=== PATIENT | female | born 1925 | race Caucasian/White ===

== ENCOUNTER 2016-04-30 13:54 | Emergency (ER) | payer MEDICARE, BC ==
[2015-05-24 15:08] VITALS: BMI 28.3
[~2016-04-30 13:54] MED LIST: BAYER CHEWABLE81 MG PO; CALAN SR180 MG PO; CULTURELLE1 CAP PO; ELIQUIS2.5 MG PO; GABAPENTIN100 MG PO; LEXAPRO10 MG PO; OXYCONTIN15 MG PO; PRESERVISION AR1 CAP PO; RESTORIL22.5 MG PO; ROXICODONE15 MG PO; SYNTHROID50 MCG PO; VENTOLIN HFA18 GM INH
[2016-04-30 15:08] LABS: APPEARANCE HAZY (CLEAR); BILIRUBIN NEGATIVE (NEGATIVE); COLOR YELLOW (YELLOW); GLUCOSE NEGATIVE (NEGATIVE); KETONE NEGATIVE (NEGATIVE); LEUKOCYTE ESTERASE TRACE (NEGATIVE); NITRITE NEGATIVE (NEGATIVE); PROTEIN NEGATIVE (NEGATIVE); SPECIFIC GRAVITY 1.015 (1.005-1.020); UROBILINOGEN NORMAL (NORMAL)
[2016-04-30 15:10] LABS: BACTERIA MODERATE /hpf (NONE SEEN); EPITHELIAL CELLS 0-5 /hpf (0-5); RED CELLS - URINE OCC /hpf (0-5); UDS - AMPHET NEGATIVE QUAL (NEGATIVE); UDS - BARB NEGATIVE QUAL (NEGATIVE); UDS - BENZO POSITIVE QUAL (NEGATIVE); UDS - COCAINE NEGATIVE QUAL (NEGATIVE); UDS - METH NEGATIVE QUAL (NEGATIVE); UDS - OPIATE POSITIVE QUAL (NEGATIVE); UDS - PCP NEGATIVE QUAL (NEGATIVE); UDS - THC NEGATIVE QUAL (NEGATIVE); WHITE CELLS - URINE 0-5 /hpf (0-5)
[2016-04-30 15:12] LABS: BASOPHILS 0.5 % (0.0-2.0); EOSINOPHILS 1.5 % (0-7); HEMATOCRIT 41.3 % (36.0-48.0); HEMOGLOBIN 13.2 g/dL (12-16); IMMATURE GRANULOCYTES 0.5 % (0-5); MCH 29.9 pg (26.0-34.0); MCV 93.4 fL (80.0-100.0); MEAN PLATELET VOLUME 10.3 fL (7.4-10.4); NEUTROPHILS 78.5 % (40-80); RBC 4.42 10x6/uL (4.00-5.40); RDW 13.9 % (11.5-14.5)
[2016-04-30 15:14] LABS: PLATELET COUNT 199 10x3/uL (130-400)
[2016-04-30 15:49] LABS: ALBUMIN 3.8 g/dL (3.4-5.0); ANION GAP 14.3 mmol/L (8-16); BILIRUBIN - TOTAL 0.54 mg/dL (0.2-1.3); CALCIUM 8.6 mg/dL (8.5-10.1); CARBON DIOXIDE 28.1 mmol/L (21.0-32.0); POTASSIUM - SERUM 3.4 mmol/L (3.5-5.1); PROTEIN - SERUM 7.4 g/dL (6.4-8.2)
== END 2016-04-30 18:43 | disposition home or self-care (01) ==
LOC: D.ER 13:54
PROVIDERS: Physician Assistant
DX: M54.5 Low back pain (principal); M54.6 Pain in thoracic spine; R58 Hemorrhage, not elsewhere classified; M54.2 Cervicalgia; I10 Essential (primary) hypertension; E03.9 Hypothyroidism, unspecified; F03.90 Unspecified dementia, unspecified severity, without behavioral disturbance, psychotic disturbance, mood disturbance, and anxiety

== ENCOUNTER 2016-07-30 11:35 | Emergency (ER) | payer MEDICARE, BC ==
[2015-05-24 15:08] VITALS: BMI 28.3
== END 2016-07-30 15:00 | disposition home or self-care (01) ==
LOC: D.ER 11:35
DX: Z03.89 Encounter for observation for other suspected diseases and conditions ruled out (principal); I10 Essential (primary) hypertension; W19.XXXA Unspecified fall, initial encounter

== ENCOUNTER 2016-08-13 08:27 | Inpatient (IN) | payer MEDICARE, BC ==
[~2016-08-13] VITALS: Ht 157.5 cm; Wt 72.7 kg
[2016-08-13 13:04] LABS: BASOPHILS 0.3 % (0-2); HEMATOCRIT 37.9 % (36.0-48.0); HEMOGLOBIN 12.1 g/dL (12-16); IMMATURE GRANULOCYTES 0.3 % (0-5); LYMPHOCYTES 22.4 % (15-50); MCH 29.9 pg (26.0-34.0); MCHC 31.9 g/dL (31.0-37.0); MCV 93.6 fL (80.0-100.0); MEAN PLATELET VOLUME 10.5 fL (7.4-10.4); MONOCYTES 8.9 % (2-11); NEUTROPHILS 65.1 % (40-80); PLATELET COUNT 207 10x3/uL (130-400); RBC 4.05 10x6/uL (4.00-5.40); RDW 13.8 % (11.5-14.5); WBC 6.4 10x3/uL (4.8-10.8)
[2016-08-13 13:19] LABS: ALBUMIN 3.2 g/dL (3.4-5.0); ALKALINE PHOSPHATASE 84 U/L (46-116); ALT (SGPT) 16 U/L (10-68); BILIRUBIN - TOTAL 1.09 mg/dL (0.2-1.3); CALC OSMOLALITY 287 mosm/kg (275-300); CALCIUM 8.8 mg/dL (8.5-10.1); CARBON DIOXIDE 29.8 mmol/L (21.0-32.0); CHLORIDE - SERUM 108 mmol/L (98-107); GLUCOSE 113 mg/dL (74-106); PROTEIN - SERUM 6.6 g/dL (6.4-8.2); SODIUM 144 mmol/L (136-145); UREA NITROGEN 12 mg/dL (7-18); eGFR NON AFRICAN AMERICAN 55 mL/min (90-120)
[2016-08-13 13:24] LABS: CREATINE KINASE 213 UL (21-215); MAGNESIUM - SERUM 1.9 mg/dL (1.8-2.4); TROPONIN-I < 0.017 ng/mL (0.000-0.060)
[2016-08-13 14:13] LABS: APPEARANCE CLEAR (CLEAR); COLOR DK YELLOW (YELLOW); GLUCOSE NEGATIVE (NEGATIVE); LEUKOCYTE ESTERASE NEGATIVE (NEGATIVE); NITRITE NEGATIVE (NEGATIVE); PROTEIN NEGATIVE (NEGATIVE); SPECIFIC GRAVITY 1.025 (1.005-1.020)
[2016-08-13 14:14] LABS: BILIRUBIN NEGATIVE (NEGATIVE); KETONE NEGATIVE (NEGATIVE); UROBILINOGEN NORMAL (NORMAL)
[2016-08-13 16:37] VITALS: BP 114/64; Ht 157.5 cm; Wt 72.7 kg
[2016-08-13 18:22] VITALS: BP 126/64
--- NOTE | 2016-08-13 19:58 | NUR ---
REECIVED IN BEDRROM. RESTING IN BED EYES CLOSED. RESPONDS TO TOUCH. VERY CONFUSED. BOX ALARM PLACED FOR SAFETY. CALL LIGHT IN REACH.
[2016-08-13 20:00] VITALS: BP 132/66
--- NOTE | 2016-08-14 02:56 | NUR ---
RESTING IN BED EYES CLOSED. NO SIGNS OF DISTRESS. CALL LIGHT IN REACH
[2016-08-14 04:00] VITALS: BP 130/69
[2016-08-14 06:41] LABS: BASOPHILS 0.4 % (0-2); EOSINOPHILS 4.1 % (0-7); HEMOGLOBIN 12.1 g/dL (12-16); IMMATURE GRANULOCYTES 0.2 % (0-5); LYMPHOCYTES 26.6 % (15-50); MCH 29.8 pg (26.0-34.0); MCHC 31.8 g/dL (31.0-37.0); MCV 93.6 fL (80.0-100.0); MONOCYTES 9.8 % (2-11); NEUTROPHILS 58.9 % (40-80); PLATELET COUNT 213 10x3/uL (130-400); RBC 4.06 10x6/uL (4.00-5.40)
[2016-08-14 07:03] LABS: ANION GAP 11.1 mmol/L (8-16); CALCIUM 8.6 mg/dL (8.5-10.1); CARBON DIOXIDE 28.6 mmol/L (21.0-32.0); CREATININE - SERUM 0.9 mg/dL (0.6-1.3)
[2016-08-14 07:35] LABS: WBC 4.6 10x3/uL (4.8-10.8)
[2016-08-14 07:37] LABS: POTASSIUM - SERUM 2.7 mmol/L (3.5-5.1)
[2016-08-14 08:31] VITALS: BP 118/61
--- NOTE | 2016-08-14 09:04 | NUR ---
PT ALERT TO SELF ONLY RESP EVEN AND NONLABORED IV TO LEFT FOREARM PATENT AT THIS TIME IV PT DENIES NEEDS AT THIS TIME SRX2 BED AT LOWEST SETTING CALL LIGHT WITHIN REACH WILL CONTINUE TO MONITOR
--- NOTE | 2016-08-14 11:04 | NUR ---
Patient Name: SOURAV THOMAS Admission Status: ER Accout number: [id number] Admission Date: 08-13-2016 : 1925 Admission Diagnosis: Attending: JENNIFER Current LOS: 1 Anticipated DC Date: 08-17-2016 Planned Disposition: [facility] Primary Insurance: MEDICARE A & B Discharge Planning Comments: CM MET WITH PATIENT AND THEN CALLED DAUGHTER (SUSSY) FOR DISCHARGE NEEDS AND PLANS. DAUGHTER STATED HER MOTHER LIVES WITH HER AND HER SPOUSE AND FALLS ALL DURING THE DAY. DAUGHTER HAS BEEN FALLING SO MUCH THEY HAVE BEEN CALLING EMT SERVICES TO HELP HER UP-THEY CANNOT PHYSICALLY PICK HER UP ANY LONGER. PATIENT HAS [facility] THAT HELP WITH HER BATH AND DAILY NEEDS. PATIENT HAS A WALKER, W/C, CANE, TABLE FOR BEDSIDE,WHEELCHAIR, SHOWER CHAIR, AND BS COMMODE AT HOME. PATIENT USES A WALKER AT TIMES BUT NOT ALWAYS - THATS WHEN SHE FALLS PER DAUGHTER. PATIENTS PCP IS DR. SANTILLAN AND PHARMACY IS [facility] AT [facility]. PATIENTS FAMILY WOULD LIKE A SNF FOR PATIENT IF POSSIBLE. CM WILL CONTINUE TO FOLLOW PATIENT WITH D/C NEEDS AND PLANS. PCP DR. SANTILLAN [facility]- [phone] SUSSY (DAUGHTER) [phone] Corporate Receptionist: Anneliese Banks How many steps to enter\exit or inside your home? 0 0 * PCP TYRELL 0 * Pharmacy [facility] 0 * Preadmission Environment Home with Family 0 * ADLs Independent 0 * Equipment Bedside Commode Cane Shower Chair Walker Wheelchair 0 * Other Equipment TABLE FOR BEDSIDE 0 * List name and contact numbers for known caregivers / representatives who currently or will assist patient after discharge: SUSSY (DAUGHTER) [phone] 0 * Community resources currently utilized Other 0 * Please name any agencies selected above. [facility] 0 * Additional services required to return to the preadmission environment? Yes 0 * Can the patient safely return to the preadmission environment? Yes 0 * Has this patient been hospitalized within the prior 30 days at any hospital? No 0 Grand Total: 0
--- NOTE | 2016-08-14 12:07 | HP ---
PATIENT: SOURAV THOMAS MEDICAL RECORD: [id number] ACCOUNT: [id number] LOCATION:D.[id number] : [birth year] ADMISSION DATE: 08/14/16 HISTORY AND PHYSICAL EXAMINATION HISTORY OF PRESENT ILLNESS: This elderly 89-year-old white female presented to the Emergency Room upon day of admission with complaint of a fall at home. The patient has a longstanding history of falls. She was evaluated in the Emergency Room and had evidence of head trauma, laceration was repaired by the ER physician and the patient has a CT of the head that was obtained showing evidence of a small subdural hematoma. The patient will need to be observed for the next 23-hours due to the subdural hematoma and to confirm no increasing size to this patient. PAST MEDICAL HISTORY: She is confused at the present time and old history is utilized from the previous chart. She is on chronic pain medication for osteoarthritis. She has history of arrhythmia, hypertension, neuropathy, insomnia, depression, hypothyroidism and multiple falls. PAST SURGICAL HISTORY: Includes appendectomy, hysterectomy, right partial knee surgery. She had pelvic repair. She has had 3 back surgeries. She has had a ganglion cyst. ALLERGIES: The patient allergic only to ____. MEDICATIONS: Include oxycodone, Eliquis, Calan, Neurontin, Restoril, Lexapro, Synthroid, lactobacillus. SOCIAL HISTORY: The patient does not drink alcohol. Unknown smoking history. REVIEW OF SYSTEMS: The patient is complaining of increasing thirst, has a headache. No chest pain. No vision changes and no numbness to the extremities: No nausea or vomiting at the present time. REVIEW OF SYSTEMS: As above. PHYSICAL EXAMINATION: VITAL SIGNS: As below. GENERAL: She is a thin, frail 89-year-old white female that is resting comfortably in bed with evidence of a laceration to the back of her head that has been repaired. Her pupils do react to light. Extraocular movements are intact. Oral cavity and oropharynx shows tacky mucous membranes. NECK: No cervical or pharyngeal adenopathy. No nuchal rigidity. LUNGS: Clear to auscultation bilaterally. HEART: Regular rate and rhythm, I/ systolic ejection murmur. ABDOMEN: Soft, nontender, positive bowel sounds. No hepatosplenomegaly, no masses. EXTREMITIES: Arthritic changes noted. NEUROLOGIC: She is able to move all 4 extremities. ASSESSMENT: 1. Subdural hematoma. 2. Hypertension. 3. History of falls. 4. Recent trauma. HISTORY AND PHYSICAL [id number] SOURAV THOMAS 5. Anticoagulation. PLAN: The patient will be monitored in the hospital 23-hour observation. We will check laboratory appropriately and neurosurgery consultation will be obtained for monitoring. TRANSINT:[id number] Voice Confirmation ID: [id number] DOCUMENT ID: [id number] EL SMITH MD at 1207 CC: [id number] DICTATION DATE: 08/13/16 1637 DISTANCE EDUCATION DIRECTOR: 08/13/16 1721 ADM IN [place] [id number] [place] [id number]
[2016-08-14] MEDS ORDERED: Bactroban ointment TOPICAL (12:11)
[2016-08-14] MEDS ORDERED: BAYER CHEWABLE81 MG PO (12:13)
[2016-08-14 12:32] VITALS: BP 164/66
--- NOTE | 2016-08-14 14:46 | NUR ---
CM REASSESSMENT NOTE: PATIENT IS DISCHARGING TO IP REHAB TODAY. FAMILY (SUSSY) HAS BEEN NOTIFIED.
--- NOTE | 2016-08-14 16:26 | NUR ---
OT NOTE: PT COMPLETED BED MOB WITH MOD A AND POSITIONING FOR DECREASED RISK OF SKIN BREAKDOWN. PT COMPLETED SIMPLE HYGIENE TASK WITH MIN A. PT COMPLETED BUE AAROM EXS IN ALL PLANES FOR INCREASED I WITH ADLS. THANK YOU, EDISON CAMPBELL/Meredith
--- NOTE | 2016-08-14 16:45 | NUR ---
PT TAKEN VIA WHEELCHAIR TO INHOUSE REBILATATION AT THIS TIME
[2016-08-14] MEDS ORDERED: KLONOPIN1 MG PO (18:05)
[2016-08-14] MEDS ORDERED: RESTORIL15 MG PO (18:07)
[2016-08-14] MEDS ORDERED: ROXICODONE30 MG PO (18:08)
[2016-08-15] MEDS ORDERED: KLONOPIN1 MG PO (12:58)
[2016-08-15] MEDS ORDERED: HALDOL5 MG/ML (12:59)
[2016-08-15] MEDS ORDERED: ATIVAN2 MG/ML IM (13:00)
== END 2016-08-14 16:45 | DRG 87 ==
LOC: D.ER 08:27 → D.MS 13:04 → OBSVTIME 13:04 → D.MS 13:04
PROVIDERS: Emergency Medicine; ADMIT Family Medicine
PROC: 0HQ0XZZ Repair Scalp Skin, External Approach (ICD-10-PCS; principal; 2016-08-13)
DX: S06.5X0A Traumatic subdural hemorrhage without loss of consciousness, initial encounter (principal); S01.01XA Laceration without foreign body of scalp, initial encounter; W18.39XA Other fall on same level, initial encounter; S00.93XA Contusion of unspecified part of head, initial encounter; I10 Essential (primary) hypertension; E03.9 Hypothyroidism, unspecified; F03.90 Unspecified dementia, unspecified severity, without behavioral disturbance, psychotic disturbance, mood disturbance, and anxiety; E87.6 Hypokalemia; E88.09 Other disorders of plasma-protein metabolism, not elsewhere classified

== ENCOUNTER 2016-08-13 13:01 | Outpatient (CLI) | payer MEDICARE, BC ==
[2016-08-14] MEDS ORDERED: Bactroban ointment TOPICAL (12:11)
[2016-08-14] MEDS ORDERED: BAYER CHEWABLE81 MG PO (12:13)
[2016-08-14] MEDS ORDERED: KLONOPIN1 MG PO (18:05)
[2016-08-14] MEDS ORDERED: RESTORIL15 MG PO (18:07)
[2016-08-14] MEDS ORDERED: ROXICODONE30 MG PO (18:08)
[2016-08-15] MEDS ORDERED: KLONOPIN1 MG PO (12:58)
[2016-08-15] MEDS ORDERED: HALDOL5 MG/ML (12:59)
[2016-08-15] MEDS ORDERED: ATIVAN2 MG/ML IM (13:00)
[2016-08-21 16:20] VITALS: BMI 29.3
== END 2016-08-14 16:45 | disposition short-term general hospital (02) ==
LOC: D.OPS 13:01
DX: S06.5X0A Traumatic subdural hemorrhage without loss of consciousness, initial encounter (principal); S01.01XA Laceration without foreign body of scalp, initial encounter; W18.39XA Other fall on same level, initial encounter; S00.93XA Contusion of unspecified part of head, initial encounter; I10 Essential (primary) hypertension; E03.9 Hypothyroidism, unspecified; F03.90 Unspecified dementia, unspecified severity, without behavioral disturbance, psychotic disturbance, mood disturbance, and anxiety; E87.6 Hypokalemia; E88.09 Other disorders of plasma-protein metabolism, not elsewhere classified; R41.0 Disorientation, unspecified; R94.31 Abnormal electrocardiogram [ECG] [EKG]

== ENCOUNTER 2016-08-14 16:38 | Inpatient (IN) | payer MEDICARE, BC ==
[~2016-08-14] VITALS: Ht 157.5 cm; Wt 72.7 kg
[~2016-08-14 16:38] MED LIST changes: +Bactroban ointment TOPICAL
--- NOTE | 2016-08-14 17:10 | NUR ---
RECIEVED/WC TO ROOM 1108B.CONFUSED AND DISORIENTED.HX:OF FALLS X2.INCISION TO SCALP WITH MARLENE IN PLACE.OOZING SCANT AMT OF LIGHT RED LIQUID.MATTED IN HAIR.INCONT OF STOOL;TAKEN TO BATHROOM AND ASSISTED MOD ASSIST TO COMMODE,GOOD FORMED BROWN BM NOTED.CLEANED AND PLACED BACK IN WC WITH ALARM,STATES SHE WANTS HER DAUGHTER AND CONSISTENTLY GETING UP,TALKING ABOUT HER TAMMIE;RE-ORIENTED TO SURROUNDIGS BUT STATES SHE DOES NOT CARE.STATES SHE WANTS SUSSY AND HER CAT.
[2016-08-14] MEDS ORDERED: KLONOPIN1 MG PO (18:05)
[2016-08-14] MEDS ORDERED: RESTORIL15 MG PO (18:07)
[2016-08-14] MEDS ORDERED: ROXICODONE30 MG PO (18:08)
--- NOTE | 2016-08-14 18:39 | NUR ---
NOTIFIED FOR MED ORDERS GIVEN TO US PER HER DAUGHTER WHOM IS POA,OK TO RESTART MEDS.PT IS COMBATIVE,CLAWING,PINCHING,SCRATCHING,PULLING,HITTING.LOOKING FOR LONG KNIFE TO KILL SOMEONE AND WANTING TO CALL POLICE.
--- NOTE | 2016-08-14 21:25 | NUR ---
SPOKE WITH DR SHERIFF REGARDING PT MENTAL STATUS. PT HAS BEEN AGGRESSIVE AND DISRUPTIVE. PT HAS ATTEMPTED TO SCRATCH, KICK, PUNCH, AND BITE STAFF. PT HAS CALLED STAFF NAMES. PT HAS INSISTED THAT SHE IS IN HER HOME AND NOT IN THE HOSPITAL AND THAT STAFF HAS REMODELED HER HOME TO MAKE IT LOOK LIKE A HOSPITAL. PT HAS THREATENED TO KILL STAFF. PT REFUSES TO STAY IN BED. PT IS CURRENTLY SITTING AT NURSES STATION IN WHEELCHAIR WITH STAFF CONSTANTLY BY HER SIDE. DR SHERIFF ORDERED 3MG OF HALDOL AND 1MG ATIVAN Q2PRN.
--- NOTE | 2016-08-14 22:09 | NUR ---
PT ADMINSTERED PRN HALDON AND ATIVAN IM. WCTM.
--- NOTE | 2016-08-15 00:05 | NUR ---
PT HAS CONTINUED TO BE AGGRESSIVE AND HAS SUCCEEDED IN HITTING, SCRATCHING, AND PUNCHING STAFF. PT GIVEN PRN HALDOL AND ATIVAN AT THIS TIME. WCTM.
--- NOTE | 2016-08-15 01:30 | NUR ---
PT REFUSING TO STAY IN BED. PT MOVED TO RECLINING CHAIR AND BROUGHT TO NURSES STATION. PT IS LESS COMBATIVE AT THIS TIME. WCTM.
--- NOTE | 2016-08-15 03:30 | NUR ---
PT RESTING, EYES CLOSED. RR ARE EVEN AND UNLABORED. WCTM.
[2016-08-15 04:28] VITALS: BP 164/66; Ht 157.5 cm; Wt 72.7 kg
--- NOTE | 2016-08-15 07:20 | NUR ---
PT VERY UPSET AND AGGRESSIVE VERBILIZES SHE WANTS TO DROWN NURSE RALPH GARLAND RN IN [facility] AND THAT THIS PLACE IS A CONSPIRICY THERORY. PT IN [place]ANCIS[place] CHAIR AT NURSES DESK FOR SAFETY. SIOMARA VELA
--- NOTE | 2016-08-15 07:50 | NUR ---
PT GIVEN IM INJECTION ATIVAN AND HALDOL PER DR ORDER FOR AGRRESSION AND AGGITATION WILL MONITER
--- NOTE | 2016-08-15 08:00 | NUR ---
IN RECLINER CHAIR WITH EYES ON AT ALL TIMES.ATTENDED PER STAFF.
--- NOTE | 2016-08-15 08:15 | NUR ---
PT STILL VERY AGGRESSIVE TRYING TO STAND HITTING AT STAFF SCRATCHED STAFF Roque PART OF PHYSICAL THERAPY STAFF AND [place] BLOOD. PT REFUSES BREAKFAST
--- NOTE | 2016-08-15 09:45 | NUR ---
PT REFUSING ALL MEDS STILL AT NURSING STATION WILL MONITER
--- NOTE | 2016-08-15 11:56 | NUR ---
PATIENT UNABLE TO PARTICIPAIE IN THERAPY AND IS BEING DISCHARGED FROM [facility] AND ADMITTED TO [facility].
[2016-08-15] MEDS ORDERED: KLONOPIN1 MG PO (12:58)
[2016-08-15] MEDS ORDERED: HALDOL5 MG/ML (12:59)
[2016-08-15] MEDS ORDERED: ATIVAN2 MG/ML IM (13:00)
--- NOTE | 2016-08-15 13:45 | NUR ---
PT DISCHARGED TO [facility] REPORT CALLED REPORT TO LEILANI
== END 2016-08-15 14:44 | DRG 950 ==
LOC: D.REHAB 16:38
PROVIDERS: ADMIT Emergency Medicine
DX: S06.5X0D Traumatic subdural hemorrhage without loss of consciousness, subsequent encounter (principal); W19.XXXD Unspecified fall, subsequent encounter; I10 Essential (primary) hypertension; E03.9 Hypothyroidism, unspecified; J45.909 Unspecified asthma, uncomplicated; F41.8 Other specified anxiety disorders; G62.9 Polyneuropathy, unspecified

== ENCOUNTER 2016-08-15 11:04 | Inpatient (IN) | payer MEDICARE, BC ==
[~2016-08-15] VITALS: Ht 157.5 cm; Wt 72.7 kg
[~2016-08-15 11:04] MED LIST changes: +KLONOPIN1 MG PO; +RESTORIL15 MG PO; +ROXICODONE30 MG PO
[2016-08-15] MEDS ORDERED: KLONOPIN1 MG PO (12:58)
[2016-08-15] MEDS ORDERED: HALDOL5 MG/ML (12:59)
[2016-08-15] MEDS ORDERED: ATIVAN2 MG/ML IM (13:00)
--- NOTE | 2016-08-15 13:56 | NUR ---
PT ADMITTED TO RETIREMENT FROM REHAB FOR INCREASE COMBATIVENESS. PT WAS HITTING, KICKING, SCRATCHING, AND SPITTING AT STAFF. PT HAS BEEN REFUSING HER MEDICATIONS AND REFUSING TO EAT. PT DID EAT 50% OF HER LUNCH PRIOR TO COMING TO UNIT. SPOKE WITH HER DAUGHTER SUSSY WHO IS HER POA AND GOT VERBAL CONSENT FOR TREATMENT AND TO BE ADMITTED TO UNIT. REVIEWED CODE STATUS AND PT IS A DNR. PT HAS FALLEN MULTIPLE TIMES AT HOME AND HAS MULTIPLE BRUISES THROUGH OUT HER BODY AND FACE. FALL PRECAUTIONS INITIATED. WILL CONTINUE TO MONITOR AND CONTINUE WITH CARE PLAN. PT HAS MARLENE ON HER HEAD BUT SHE REFUSED TO ALLOW STAFF IN REHAB TO ASSESS THEM.
[2016-08-15 14:26] VITALS: BP 115/64; BMI 29.3
[2016-08-15 14:32] VITALS: BMI 29.2
[2016-08-15 15:00] LABS: BASOPHILS 0.6 % (0-2); EOSINOPHILS 4.7 % (0-7); HEMATOCRIT 38.3 % (36.0-48.0); HEMOGLOBIN 12.7 g/dL (12-16); IMMATURE GRANULOCYTES 0.6 % (0-5); LYMPHOCYTES 28.2 % (15-50); MCH 30.6 pg (26.0-34.0); MCHC 33.2 g/dL (31.0-37.0); MCV 92.3 fL (80.0-100.0); MEAN PLATELET VOLUME 10.6 fL (7.4-10.4); MONOCYTES 10.1 % (2-11); NEUTROPHILS 55.8 % (40-80); PLATELET COUNT 214 10x3/uL (130-400); RBC 4.15 10x6/uL (4.00-5.40); WBC 5.2 10x3/uL (4.8-10.8)
[2016-08-15 15:37] LABS: HEMOGLOBIN A1C 5.3 % (4.8-6.0)
[2016-08-15 15:41] LABS: ALBUMIN 3.8 g/dL (3.4-5.0); BILIRUBIN - TOTAL 1.26 mg/dL (0.2-1.3); CALCIUM 9.1 mg/dL (8.5-10.1); CARBON DIOXIDE 26.1 mmol/L (21.0-32.0); CHOL - HDL RATIO 3.9 ratio (2.3-4.1); CREATININE - SERUM 0.9 mg/dL (0.6-1.3); LDL-HDL RATIO 2.5 ratio (1.5-3.5); POTASSIUM - SERUM 3.1 mmol/L (3.5-5.1); PROTEIN - SERUM 7.1 g/dL (6.4-8.2)
--- NOTE | 2016-08-15 23:10 | NUR ---
RECEIVED IN HALLWAY. CAMBATIVE WITH STAFF. SPIT AT STAFF. ATTEMPTED TO HIT AND KICK STAFF. VERBALLY ABUSIVE. REFUSED VITALS AND ASSESSMENTS. REDIRECT AND REORIENT NEEDED. CONTINUES TO SIT IN RECLINER OUTSIDE OF NURSES STATION. CONTINUE PLAN OF CARE
[2016-08-16 08:15] VITALS: BP 156/111
[2016-08-16 11:30] VITALS: BP 148/69
--- NOTE | 2016-08-16 13:48 | NUR ---
Received this am asleep, arouses to name. Oriented to self only. Slept through breakfast, awake at lunch and was cooperative with meal with no behaviors noted at this time. Chair alarm in place. Safety maintained. Continue plan of care.
[2016-08-16 20:15] VITALS: BP 137/68
--- NOTE | 2016-08-17 00:38 | NUR ---
B) Recieved patient in the hallway, alert and oriented to self and being in a hospital, agitated, aggressive to staff: hitting and spitting, said we were stealing her property, called this nurse a snake, I) offered perscribed PO medications, PRN Ativan 0.5 mg IM and Haldol 2 mg IM given, monitored for falls and safety, R) Refused all PO medications, resting quietly in the hallway, P) Continue plan of care.
--- NOTE | 2016-08-17 14:58 | NUR ---
B) PATIENT IS ANGRY AND IRRITABLE, SHE HIT AT STAFF WHILE SHOWERING AND SHE SWUNG AT DR. RICE. PATIENT REFUSED AM MEDS, SHE MAKES SNIDE RUDE REMARKS TO STAFF IF THEY ASK HER QUESTIONS. PATIENT IS IN A FRANCISCO CHAIR, SHE IS NOT WALKING. PATIENT IS CONFUSED AND HAS DELUSIONAL THOUGHTS OF PEOPLE TRYING TO STEAL FROM HER. I) PROVIDE PRESCRIBED MEDS. R) PATIENT REFUSES MEDS, MONITOR FOR AGGRESSION. WILL TRY TO GET PHARMACY NAME FROM DTR. NEXT TIME SHE CALLS. P) CONT. POC.
--- NOTE | 2016-08-17 17:56 | NUR ---
PATIENT IS FIGHTING STAFF, SHE IS DELUSIONAL, SCREAMING FOR THE POLICE. PATIENT KEEPS CALLING STAFF LIARS. SHE IS NOT REDIRECTING, SHE IS FIGHTING, SHE IS CONFUSED, DOES NOT KNOW WHERE SHE IS LOCATED. ATIVAN 0.5 MG WITH HALDOL 2 MG IM GIVEN IN LEFT HIP.
--- NOTE | 2016-08-17 18:30 | NUR ---
PATIENT IS SITTING IN THE DAY ROOM AND SHE IS FIGHTING AND SCREAMING, WILL CONTINUE TO MONITOR.
[2016-08-17 19:48] VITALS: BP 152/63
--- NOTE | 2016-08-18 02:06 | NUR ---
B) Recieved patient in the day room, alert and oriented to self, agitated and restless, I) Administered perscribed medications, monitored for safety and behaviors, R) Medication compliant, aggressive with staff at times, P) Continue plan of care.
[2016-08-18 15:09] VITALS: BP 138/80
[2016-08-18 19:00] VITALS: BP 138/70
--- NOTE | 2016-08-18 19:53 | NUR ---
B) PATIENT IS AWAKE AND SHE DID NOT WANT TO GET UP, SHE FUSSED A LITTLE BIT AND THEN SHE SAT IN A RECLINER AND SHE NOT DISPLAY AGGRESSION OR AGITATION. PATIENT IS UNSTEADY, SO STAFF HAS TO ASSIST. I) PROVIDE PRESCRIBED MEDS. R) PATIENT IS COMPLIANT WITH MEDS TODAY. P) CONTINUE POC.
--- NOTE | 2016-08-18 22:11 | NUR ---
ORIENTED TO PERSON ONLY. PT LETHARGIC BUT ABLE TO BE ROUSED FOR ASSESSMENT AND MEDICATIONS. NO AGGRESSION NOTED. MEDICATIONS GIVEN ORDERED. FALL PRECAUTIONS MAINTAINED. WILL CONTINUE TO MONITOR AND CONTINUE WITH PLAN OF CARE.
--- NOTE | 2016-08-19 08:10 | NUR ---
B) PATIENT TRYING TO GET UP AND SHE IS NOT REDIRECTING OR LISTENING SHE HAS ALREADY FALLEN AND HAS MARLENE IN HER HEAD, EXPLAINED WE ARE TRYING TO KEEP HER SAFE. PATIENT NOT LISTENING AND SHE HITS AT AND KICKS AT THIS NURSE. PATIENT RECEIVED 0.5 MG ATIVAN WITH 2 MG HALDOL IM. PATIENT IS ORIENTED TO SELF ONLY. I) PROVIDE PRESCRIBED MEDS. R) PATIENT REFUSED MEDS TODAY. P) CONTINUE POC.
[2016-08-19 10:42] VITALS: BP 164/80
--- NOTE | 2016-08-19 20:00 | NUR ---
RECEIVED IN DAYROOM IN RECLINER WITH EYES CLOSED. ORIENTED TO PERSON ONLY. VERY LETHARGIC, BUT TOOK ORDERED MEDS CRUSHED IN APPLESAUCE. CALM AND COOPERATIVE WITH ASSESSMENT AND CARE. VSS. ASSESSMENT COMPLETED PER FLOW SHEET. WILL CONTINUE POC AND MAINTAIN SAFETY.
[2016-08-20 07:00] VITALS: BP 144/82
[2016-08-20 19:30] VITALS: BP 149/59
--- NOTE | 2016-08-20 20:37 | NUR ---
PT IS RECEIVED IN CHAIR AT NURSE STATION. PT IS ALERT AND ORIENTED X3. PT DENIES PAIN. NO HALLUCINATIONS OR DELUSIONS ARE NOTED OR REPORTED. PT IS REDIRECTED AND REORIENTED NEEDED. PT IS COOEPRATIVE WITH STAFF AND IS COMPLIANT WITH MEDS AND CARE. WILL CONTINUE TO MONITOR AND CONTIUE WITH PLAN OF CARE.
--- NOTE | 2016-08-20 20:51 | NUR ---
RECEIVED IN DAYRROM. SITTING IN RECLINER WITH EYES CLOSED. RESPONDS TO VOICE. CONFUSED. CALM AND COOPERATIVE WITH CARE AND ASSESSMENTS. NO SIGNS OF AGGRESSION. REDIRECT AND REORIENT NEEDED. CONTINUES TO SIT QUIETLY IN RECLINER. CONTINUE PLAN OF CARE
[2016-08-21 10:13] VITALS: BP 168/72
[2016-08-21 16:20] VITALS: Ht 157.5 cm; Wt 72.7 kg
--- NOTE | 2016-08-21 16:21 | NUR ---
ORIENTED TO PERSON ONLY. PT IS VERY RESTLESS AND ATTEMPTS TO SLIDE INTO THE FLOOR. FREQUENT REDIRECTION DONE WITH NO EVIDENCE OF RETAINING. PT MAKING DELUSIONAL STATEMENTS ABOUT CATS. SHE DOES BECOME AGITATED EASILY. FALL PRECAUTIONS MAINTAINED. MEDICATIONS GIVEN ORDERED. WILL CONTINUE TO MONITOR AND CONTINUE WITH PLAN OF CARE.
[2016-08-21 19:30] VITALS: BP 108/63
--- NOTE | 2016-08-21 20:02 | NUR ---
RECEIVED IN DAYROOM. SITTING IN WHEELCHAIR WITH EYES CLOSED. RESPONDS TO VOICE. CALM AND COOPERATIVE WITH CARE AND ASSESSMENTS. NO SIGNS OF AGGRESSION. REDIRECT AND REORIENT NEEDED. ENCORAGE TO EXPRESS NEEDS. CONTINUES TO SIT QUIETLY IN CHAIR. CONTINUE PLAN OF CARE
--- NOTE | 2016-08-21 22:03 | NUR ---
RECEIVED IN DAYROOM. SITTING IN RECLINING CHAIR WITH STAFF AND PEERS. NOT SOCIALIZING. VERY CONFUSED. CALM AND COOPERATIVE WITH STAFF AND PEERS. NO SIGNS OF AGGRESSION. REDIRECT AND REORIENT NEEDED. RESTING IN BED EYES CLOSED AT THIS TIME. CONTINUE PLAN OF CARE
[2016-08-22 11:12] VITALS: BP 123/50
--- NOTE | 2016-08-22 16:01 | NUR ---
Alert and oriented to self only, calm and cooperative with assessment this am. Redirect and reorient as need. Monitor for any behavior changes. Monitor safety. Delusional thinks she is looking forn her cat, keeps trying to get out of chair unassisted. No aggression and is redirectable. Safety maintained. Continue plan of care.
--- NOTE | 2016-08-22 20:10 | NUR ---
RECEIVED IN DAYROOM. SITTING IN A WHEELCHAIR WITH EYES CLOSED. RESPONDS TO VOICE. VERY CONFUSED. CALM AND COOPERATIVE WITH CARE AND ASSESSMENTS. NO SIGNS OF AGGRESSION. REDIRECT AND REORIENT NEEDED. CONTINUES TO SIT QUIETLY IN WHEELCHAIR. CONTINUE PLAN OF CARE
[2016-08-23 11:34] VITALS: BP 155/81
--- NOTE | 2016-08-23 12:20 | NUR ---
ORIENTED TO PERSON ONLY. PT SPEECH IS GARBLED AND SLURRED. DIFFICULT TO UNDERSTAND. RANDOM DELUSIONS MADE. REORIENTED AND REDIRECTED NEEDED. NO EVIDENCE OF RETAINING EDUCATION OR REDIRECTION. MEDICATIONS GIVEN ORDERED. FALL PRECAUTIONS MAINTAINED. WILL CONTINUE TO MONITOR AND CONTINUE WITH PLAN OF CARE. NO AGGRESSION NOTED.
--- NOTE | 2016-08-23 14:01 | NUR ---
5 MARLENE REMOVED. LACERATION IS CLOSED.
--- NOTE | 2016-08-23 20:40 | NUR ---
RECEIVED IN DAYROOM SITTING RECLINER WATCHING TV. WQAKE AND ALERT TO NAME AND SITUATION. SHE IS IN PLEASANT MOOD. NO AGGRESSION NOTED. ADMINISTER PRESCRIBED MEDS. VSS. MEDICATION COMPLIANT. CALM AND COOPERATIVE WITH CARE AND ASSESSMENT. CONTINUE WITH PLAN OF CARE AND MONITOR FOR SAFETY AND CHANGES.
[2016-08-24 08:00] VITALS: BP 115/54
--- NOTE | 2016-08-24 13:47 | NUR ---
ORIENTED TO PERSON AND PLACE. REDIRECTION DONE BUT PT SHOWS NO SIGNS OF RETAINING. NO AGGRESSION NOTED. DENIES. COOPERATIVE WITH CARE. SPEECH IS CLEAR TODAY. MEDICATIONS GIVEN ORDERED. FALL PRECAUTIONS MAINTAINED. WILL CONTINUE TO MONITOR AND CONTINUE WITH PLAN OF CARE.
--- NOTE | 2016-08-24 14:12 | NUR ---
Nutrition Follow Up: Pt is eating 36% meal avg on an AHA diet. Wt stable. +BM 08/23/16. No new labs to review. Meds noted including Megace. Rec changing diet to regular to encourage po intake. RD following.
--- NOTE | 2016-08-24 20:38 | NUR ---
RECEIVED PT SITTING IN RECLINER, PT ASKING WHICH HOSPITAL SHE WAS IN, I INFORMED PT SHE WAS IN [facility], PT STATES "OK', I WAS TALKING TO PT ABOUT HER FIRST AND LAST NAME, PT PROCEEDED IN TELLING ME THAT SHE "LOATHED" HER LAST NAME AND HATED HER FIRST NAME, PT STATES "I WOULD OF LIKED THE NAME KASSIDY", ADM 2100 MEDS CRUSHED IN APPLESAUCE, PT COOPERATIVE IN TAKING MEDS, WILL CONTINUE POC
[2016-08-24 21:53] VITALS: BP 123/54
[2016-08-25 07:59] VITALS: BP 130/57
--- NOTE | 2016-08-25 09:00 | NUR ---
ORIENTED TO PERSON AND PLACE. CALM AND COOPERATIVE WITH ASSESSMENT. VSS. NO AGGRESSION NOTED. SPEECHES CLEAR, BUT SOFTLY. ADMINISTER PRESCRIBED MEDICATIONS. MEDICATION COMPLIANT. FALL PRECAUTIONS MAINTAINED. WILL CONTINUE PLAN OF CARE.
--- NOTE | 2016-08-25 18:07 | NUR ---
RECEIVED IN DINING AREA. SITTING AT TABLE WITH PEERS AT SUPPER TIME. CALM AND COOPERATIVE WITH CARE AND ASSESSMENTS. NO SIGNS OF AGGRESSION. REDIRECT AND REORIENT NEEDED. IN DAYROOM AREA SOCIALIZING WITH A PEER AT THIS TIME. CONTINUE PLAN OF CARE
[2016-08-25 19:30] VITALS: BP 105/67
--- NOTE | 2016-08-26 08:05 | NUR ---
INTRODUCED MYSELF TO PT PRIMARY RN FOR TODAYS SHIFT. PT IS SITTING UP IN CHAIR BY NURSES STATION. PT IS CONFUSED AND STATES "WE ARE AT [facility]" REORIENTED PT TO PLACE AND SHE STATES "YES THIS [facility], WHICH IM SUPPOSED TO BE RELEASE SAID SO NOW GO READ HIS NOTE" EXPLAINED TO PT ILL LOOK INTO HER CHART AND SEE ABOUT DISCHARGE EXPECTED DATES. WILL CTM.
[2016-08-26 09:57] VITALS: BP 133/64
--- NOTE | 2016-08-26 11:04 | NUR ---
PT FELL ASLEEP SITTING UP ON COUCH IN DAYROOM. RR NONLABORED ON RA. NO S/S OF DISTRESS OR NEEDS NOTED AT THIS TIME. WILL CTM.
[2016-08-26 19:30] VITALS: BP 103/50
--- NOTE | 2016-08-27 00:56 | NUR ---
B) Recieved patient in the day room, alert and oreinted to self, demanding at time, pleasent at times, I) Administered perscribed medications, monitored for falls and safety, R) Medication compliant, no outburst of behaviors noted, P) Continue plan of care.
[2016-08-27 07:00] VITALS: BP 124/63
--- NOTE | 2016-08-27 10:00 | NUR ---
RECEIVED SITTING IN W/C QUIETLY. AWAKE AND ALERT. NO AGGRESSION NOTED. ADMINISTERED PRESCRIBED MEDS. AMBULATED WITH PT. MEDICATION COMPLIANT. REDIRECTS AND REORIENTS NEEDED. CONTINUE PLAN OF CARE.
--- NOTE | 2016-08-27 20:02 | NUR ---
RECEIVED IN DAYROOM. SITTING IN A WHEELCHAIR WITH PEERS BY HER SIDE. NOT SOCIALIZING. CALM AND COOPERATIVE WITH CARE AND ASSESSMENT. REDIRECT AND REORIENT NEEDED. ATTEMPTS TO STAND WITHOUT ASSIST AT TIMES. REINFORCE FALLS SAFETY. CONTINUES TO SIT QUIETLY. CONTINUE PLAN OF CARE
[2016-08-27 21:39] VITALS: BP 105/55
[2016-08-28 07:00] VITALS: BP 122/58
--- NOTE | 2016-08-28 12:07 | NUR ---
ORIENTED TO PERSON ONLY. PT HAS DIFFICULTY FOLLOWING DIRECTION AT TIMES. REDIRECTED AND REORIENTED FREQUENTLY WITH NO EVIDENCE OF RETAINING. NO AGGRESSION NOTED. DENIES SI. MEDICATIONS GIVEN ORDERED. FALL PRECAUTIONS MAINTAINED DUE TO PT CONSTANT ATTEMPTS AT SLIDING INTO THE FLOOR. WILL CONTINUE TO MONITOR AND CONTINUE WITH PLAN OF CARE.
[2016-08-28 21:05] VITALS: BP 118/52
--- NOTE | 2016-08-28 22:56 | NUR ---
RECEIVED IN BEDROOM. LAYING IN BED WITH EYES CLOSED. RESPONDS TO VOICE. CALM AND COOPERATIVE WITH CARE AND ASSESSMENTS. CONFUSED. NO SIGNS OF AGGRESSION. REDIRECT AND REORIENT NEEDED. CONTINUE PLAN OF CARE
[2016-08-29] MEDS ORDERED: MEGACE40 MG PO (08:40)
[2016-08-29] MEDS ORDERED: LISINOPRIL10 MG PO (08:40)
[2016-08-29] MEDS ORDERED: ARICEPT5 MG PO (08:40)
[2016-08-29] MEDS ORDERED: ABILIFY2 MG PO (08:41)
[2016-08-29] MEDS ORDERED: KLONOPIN1 MG PO (08:41)
[2016-08-29] MEDS ORDERED: VITAMIN D5000 UNIT PO (08:41)
[2016-08-29 09:59] VITALS: BP 132/70
--- NOTE | 2016-08-29 10:00 | NUR ---
ORIENTED TO PERSON AND PLACE. ASKING WHEN SHE IS GOING TO ACTUALLY GET TO GO TO THE [facility]? NO AGGRESSION NOTED TODAY. AMBULATED WITH PT. CALM AND COOPERATIVE WITH ASSESSMENT. ADMINISTERED PRESCRIBED MEDICATIONS. COMPLIANT WITH MEDICATIONS. MONITOR FOR SAFETY AND FALLS PRECAUTIONS. CONTINUE CURRENT PLAN OF CARE.
--- NOTE | 2016-08-29 20:53 | NUR ---
RECEIVED IN BEDROOM. LAYING IN BED WITH EYES OPEN. ATTEMPTS TO PUT HERSELF INTO FLOOR. ALARM ON. CONFUSED. REFUSES PM MEDS. COOPERATIVE WITH ASSESSMENT. NO SIGNS OF AGGRESSION. REDIRECT AND REORIENT NEEDED. CONTINUE PLAN OF CARE
--- NOTE | 2016-08-29 21:34 | NUR ---
Patient refused first medication administration, reattempted by Lyida and accepted at later time. No difficulties noted.
[2016-08-30 09:00] VITALS: BP 127/54
--- NOTE | 2016-08-30 11:17 | NUR ---
THREE ATTEMPTS TO CALL REPORT TO THE [facility] AT THIS TIME, NO ANSWER ON THE PHONE, ALSO TRYING TO CALL THEM TO ASK ABOUT WHERE THEY WOULD LIKE MEDICATIONS CALLED TO.
--- NOTE | 2016-08-30 11:56 | NUR ---
B) PATIENT IS AWAKE AND ALERT, SHE IS CONFUSED SHE IS LOOKING FOR HER MOTHER. SHE IS BEING D/C'D TO THE [facility] AT 1300, MEDS CALLED TO [facility], REPORT CALLED TO [facility]. PATIENT AMBULATES WITH A WALKER WITH STAFF, UNSTEADY OTHERWISE. I) PROVIDE PRESCRIBED MEDS. R) PATIENT IS COMPLIANT WITH MEDS. P) CONTINUE D/C PLAN.
--- NOTE | 2016-08-30 13:30 | NUR ---
PATIENT D/C'D OFF THE UNIT NOW, ASSISTED TO VAN BY STAFF.
--- NOTE | 2016-08-30 13:30 | NUR ---
DESK CLERKS SUPERVISOR HERE TO IS PROJECT MANAGER PATIENT, HARD COPY OF D/C ORDER AND MEDICATION LIST SENT.
== END 2016-08-30 13:31 | disposition home or self-care (01) | DRG 57 ==
LOC: D.REHAB 11:04 → D.PSYCH 11:09
PROVIDERS: ADMIT Psychiatry & Neurology Psychiatry
DX: G30.1 Alzheimer's disease with late onset (principal); F02.81 Dementia in other diseases classified elsewhere, unspecified severity, with behavioral disturbance; S06.5X0D Traumatic subdural hemorrhage without loss of consciousness, subsequent encounter; W19.XXXD Unspecified fall, subsequent encounter; I10 Essential (primary) hypertension; M19.90 Unspecified osteoarthritis, unspecified site; E87.6 Hypokalemia; E03.9 Hypothyroidism, unspecified; G62.9 Polyneuropathy, unspecified; F41.8 Other specified anxiety disorders

== ENCOUNTER 2016-09-04 07:46 | Emergency (ER) | payer MEDICARE, BC ==
[2016-08-21 16:20] VITALS: BMI 29.3
[~2016-09-04 07:46] MED LIST changes: +ABILIFY2 MG PO; +ARICEPT5 MG PO; +ATIVAN2 MG/ML IM; +HALDOL5 MG/ML; +LISINOPRIL10 MG PO; +MEGACE40 MG PO; +VITAMIN D5000 UNIT PO
[2016-09-04 09:13] LABS: BASOPHILS 0.3 % (0-2); EOSINOPHILS 1.6 % (0-7); HEMATOCRIT 32.7 % (36.0-48.0); HEMOGLOBIN 10.9 g/dL (12-16); IMMATURE GRANULOCYTES 4.1 % (0-5); LYMPHOCYTES 18.7 % (15-50); MCH 29.9 pg (26.0-34.0); MCHC 33.3 g/dL (31.0-37.0); MCV 89.6 fL (80.0-100.0); MEAN PLATELET VOLUME 9.1 fL (7.4-10.4); MONOCYTES 8.1 % (2-11); NEUTROPHILS 67.2 % (40-80); RBC 3.65 10x6/uL (4.00-5.40); RDW 13.8 % (11.5-14.5); WBC 6.3 10x3/uL (4.8-10.8)
[2016-09-04 09:23] LABS: PLATELET COUNT 258 10x3/uL (130-400)
[2016-09-04 09:41] LABS: ALBUMIN 2.7 g/dL (3.4-5.0); ANION GAP 12.1 mmol/L (8-16); BILIRUBIN - TOTAL 0.4 mg/dL (0.2-1.3); CARBON DIOXIDE 26.9 mmol/L (21.0-32.0); CREATININE - SERUM 0.9 mg/dL (0.6-1.3); PROTEIN - SERUM 6.1 g/dL (6.4-8.2)
== END 2016-09-04 12:51 | disposition home or self-care (01) ==
LOC: D.ER 07:46
PROVIDERS: Emergency Medicine
DX: S00.81XA Abrasion of other part of head, initial encounter (principal); W01.0XXA Fall on same level from slipping, tripping and stumbling without subsequent striking against object, initial encounter; Y92.129 Unspecified place in nursing home as the place of occurrence of the external cause; S00.83XA Contusion of other part of head, initial encounter; S06.5X0A Traumatic subdural hemorrhage without loss of consciousness, initial encounter